=== PATIENT | female | born 1980 | race Hispanic/Latino ===

== ENCOUNTER 2016-11-16 16:28 | Emergency (ER) | payer OTHER ==
[2016-11-16 16:52] VITALS: BP 153/98; PULSE 92; RESP 22; TEMP 98; O2SAT 98
--- NOTE | 2016-11-16 19:17 | C.PDOC ---
History Of Present Illness 36 y/o female presents to the ED with complains of sudden onset palpitations, SOB, vision narrowing which is similar to prior symptoms of panic attacks. Symptoms resolved prior to evaluation. Pt has no complaints at this time. Time Seen by Provider: 11/16/16 19:10 Chief Complaint (Nursing): Chest Pain History Per: Patient History/Exam Limitations: no limitations Onset/Duration Of Symptoms: Hrs Current Symptoms Are (Timing): Gone Severity: Mild Recent travel outside of the [place]: No Past Medical History Reviewed: Historical Data, Nursing Documentation, Vital Signs Vital Signs: Last Vital Signs Temp 98 F 11/16/16 16:47 Pulse 92 H 11/16/16 16:47 Resp 22 11/16/16 16:47 BP 153/98 H 11/16/16 16:47 Pulse Ox 98 11/16/16 19:17 Family History: States: Unknown Family Hx - Social History Hx Alcohol Use: No Hx Substance Use: No - Immunization History Hx Tetanus Toxoid Vaccination: No Hx Influenza Vaccination: No Hx Pneumococcal Vaccination: No Review Of Systems Except As Marked, All Systems Reviewed And Found Negative. Eyes: Positive for: Other (vision narrowing) Cardiovascular: Positive for: Palpitations Respiratory: Positive for: Shortness of Breath Physical Exam - Physical Exam Appears: Non-toxic, No Acute Distress, Other (obese) Skin: Warm, Dry, No Rash Head: Atraumatic, Normacephalic Neck: Normal ROM, Supple Chest: Symmetrical Cardiovascular: Rhythm Regular, No Murmur Respiratory: Normal Breath Sounds, No Rales, No Rhonchi, No Wheezing Extremity: Bilateral: Atraumatic Neurological/Psych: Oriented x3, Normal Speech ED Course And Treatment ECG: Interpreted By Me ECG Rhythm: Sinus Rhythm ECG Interpretation: Normal Rate From EC (BPM) O2 Sat by Pulse Oximetry: 98 (on room air) Pulse Ox Interpretation: Normal Medical Decision Making Medical Decision Making: typical anxiety/panic for this pt. Disposition Doctor Will See Patient In The: Office Counseled Patient/Family Regarding: Studies Performed, Diagnosis - Disposition Referrals: Jason Zacarias MD [Medical Doctor] - Disposition: HOME/ ROUTINE Disposition Time: 19:17 Condition: GOOD Additional Instructions: follow-up with your PMD regarding eval for anxiety/panic. No new meds now Instructions: Anxiety (ED) - Clinical Impression Clinical Impression: Anxiety with limited-symptom attacks - Scribe Statement The provider has reviewed the documentation as recorded by the Scribe Samson Bello Provider Attestation: All medical record entries made by the Emiliaibe were at my direction and personally dictated by me. I have reviewed the chart and agree that the record accurately reflects my personal performance of the history, physical exam, medical decision making, and the department course for this patient. I have also personally directed, reviewed, and agree with the discharge instructions and disposition.
== END 2016-11-16 19:20 | disposition home or self-care (01) ==
LOC: C.ER 16:28
DX: F41.9 Anxiety disorder, unspecified (principal)